=== PATIENT | female | born 1975 | race Hispanic/Latino ===

== ENCOUNTER 2018-01-19 19:21 | Emergency (ER) | payer SELFPAY ==
[2018-01-19] MEDS ORDERED: ACT CHARCOAL/SORB 50 GM/240ML ONE ×2 (20:07→20:57)
[2018-01-19 20:10] LABS: Absolute Lymphocytes (CBC) 1.7 K/uL (0.7-4.9); Absolute Monocytes 0.4 K/uL (0.1-1.3); Absolute Neutrophil 2.6 K/uL (1.8-8.0); Basophils % 0.7 % (0-1.3); Eosinophils % 4.5 % (0-4.4); Hematocrit 37.1 % (36.0-45.0); Lymphocytes % 33.9 % (15.3-44.8); MCH 30.2 pg (27.0-35.0); MCV 87.9 fL (80-100); MPV 8.5 fL (7.6-11.3); Monocytes % 8.2 % (3.3-12.3); RBC Red Blood Cell Count 4.22 M/uL (3.86-4.86)
[2018-01-19 20:15] LABS: Barbiturates NEGATIVE; Benzodiazepines NEGATIVE; Cocaine NEGATIVE; METHAMPHETAM NEGATIVE; Opiates NEGATIVE; Phencyclidine NEGATIVE; THC Cannibis NEGATIVE
[2018-01-19 20:19] LABS: Bicarbonate 27 mEq/L (21-31); Glucose Level 82 mg/dL (65-120); Potassium 3.7 mEq/L (3.6-5.0); Sodium Level 140 mEq/L (135-145)
[2018-01-19 20:21] LABS: Protime INR 0.92
[2018-01-19 20:25] LABS: ALT/SGPT 14 IU/L (10-60); AST/SGOT 20 IU/L (10-42); Albumin 4.2 g/dL (3.2-5.5); Alkaline Phosphatase 57 IU/L (42-121); BUN Blood Urea Nitrogen 13 mg/dL (6-20); Bilirubin Direct 0.1 mg/dL (0-0.2); Bilirubin Total 0.5 mg/dL (0.3-1.2)
[2018-01-19 20:27] LABS: Alcohol Serum/Plasma 59 mg/dl; Salicylates Level < 4.0 mg/dl (<30)
[2018-01-19] MEDS ORDERED: ONDANSETRON 4 MG/2 ML VIAL ONE ×2 (20:28→21:29)
--- NOTE | 2018-01-19 20:51 | RAD REPORT ---
EXAM DESCRIPTION: RAD - Chest Single View - 01/19/2018 8:32 pm CLINICAL HISTORY: Chest pain COMPARISON: None. TECHNIQUE: AP portable chest image was obtained 2014 hours . FINDINGS: No pulmonary edema or other acute lung parenchymal finding. No failure or volume overload. Heart and vasculature are normal. No measurable pleural effusion and no pneumothorax. No gross bony abnormality seen. No acute aortic findings suspected. IMPRESSION: No acute cardiopulmonary process.
[2018-01-19 21:07] LABS: Urine Blood NEGATIVE (NEG); Urine Glucose NEGATIVE (NEG); Urine Protein NEGATIVE (NEG); Urine Specific Gravity 1.025 (1.005-1.030)
--- NOTE | 2018-01-20 01:40 | ER ---
Nurse's Notes [facility] Name: Zora Schneider Age: 42 yrs Sex: Female : 1975 Arrival Date: 01/19/2018 Time: 19:28 Bed 3 Private MD: Diagnosis: Anticholinergic overdose;Acute upper respiratory infection, unspecified Presentation: 01/19 19:29 Presenting complaint: Patient states: approx 1 hr ago she took 12 Benadryl and 3 aa1 Tylenol PM. Pt reports quan was not trying to hurt herself. States, "I'm just tired of feeling bad and I don't wanna be sick anymore." Pt reports for the past week she has had a headache and sore throat. NAD noted. Transition of care: patient was not received from another setting of care. Onset of symptoms was January 19, 2018. Care prior to arrival: None. 19:29 Method Of Arrival: Wheelchair aa1 19:29 Acuity: MICHELE 3 aa1 Triage Assessment: 19:31 General: Appears in no apparent distress. comfortable, Behavior is calm, cooperative, aa1 appropriate for age. Pain: Denies pain. 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 - Social history:: Smoking status: Patient/guardian denies using tobacco. Screenin:22 Abuse screen: Denies threats or abuse. Denies injuries from another. Nutritional bs1 screening: No deficits noted. Tuberculosis screening: No symptoms or risk factors identified. Fall Risk None identified. Assessment: 19:35 General: Appears uncomfortable, Behavior is cooperative, anxious. General: Behavior is bs1 drowsy. Pain: Denies pain. Neuro: Level of Consciousness is awake, obeys commands, lethargic, Oriented to person, place, time, situation, Appropriate for age Manager Assurance are equal bilaterally Moves all extremities. Gait is steady, Speech is normal. Cardiovascular: Denies chest pain, palpitations, shortness of breath, syncope, Heart tones S1 S2 present Capillary refill < 3 seconds Patient's skin is warm and dry. Respiratory: Airway is patent Trachea midline Respiratory effort is even, unlabored, Respiratory pattern is regular, symmetrical, Breath sounds are clear bilaterally. Respiratory: Denies shortness of breath at rest, on exertion. GI: Abdomen is round Bowel sounds present X 4 quads. Reports nausea. : No deficits noted. No signs and/or symptoms were reported regarding the genitourinary system. EENT: No deficits noted. No signs and/or symptoms were reported regarding the EENT system. Derm: No deficits noted. No signs and/or symptoms reported regarding the dermatologic system. Musculoskeletal: Circulation, motion, and sensation intact. Capillary refill < 3 seconds, Range of motion: intact in all extremities. 19:42 Reassessment: Spoke with Wilfred with Poison control who states that if pt is awake fc enough to have her drink charcoal. Monitor her for DOORS PREFITTER depression, slurred speech and seizures which she can be given Ativan for. 19:45 General: Side rails padded. Seizure precautions implemented. . bs1 20:12 Reassessment: Patient gagging while drinking Charcoal, Provider notified, verbal order lp1 given to administer Zofran 4mg IV. 20:32 Reassessment: Patient threw up half of Charcoal 150ml. bs1 20:53 Reassessment: Adrienne from Poison Control called at this time for update on patient; No lp1 further recommendations; . 21:53 Reassessment: Patient appears in no apparent distress at this time. Patient and/or bs1 family updated on plan of care and expected duration. Pain level reassessed. Patient is alert, oriented x 3, equal unlabored respirations, skin warm/dry/pink. Patient states symptoms have improved. 22:53 Reassessment: No changes from previously documented assessment. Patient and/or family bs1 updated on plan of care and expected duration. Pain level reassessed. Patient is alert, oriented x 3, equal unlabored respirations, skin warm/dry/pink. 23:47 Reassessment: No changes from previously documented assessment. Patient and/or family bs1 updated on plan of care and expected duration. Pain level reassessed. Patient is alert, oriented x 3, equal unlabored respirations, skin warm/dry/pink. Per DIVISION FIELD INSPECTOR patient will be monitored until around 1am then will be discharged. Patient drowsy but able to arouse. No signs of DOORS PREFITTER depression, or seizure activity noted. Will continue to monitor. 01/20 00:38 Reassessment: Patient appears in no apparent distress at this time. Patient is alert, bs1 oriented x 3, equal unlabored respirations, skin warm/dry/pink. Pending discharge. 01:46 Reassessment: Patient is alert, oriented x 3, equal unlabored respirations, skin lp1 warm/dry/pink. Reassessment: Patient states feeling better. Neuro: Moves all extremities. Gait is steady. Vital Signs: 01/19 19:31 BP 130 / 94; Pulse 85; Resp 14; Pulse Ox 100% on R/A; Weight 83.91 kg; Height 5 ft. 5 aa1 in. (165.10 cm); Pain 0/10; 19:37 Temp 98.4(O); ao 21:08 BP 128 / 84; Pulse 90; Resp 20; Pulse Ox 98% on R/A; mt 22:30 BP 116 / 72; Pulse 75; Resp 16; Pulse Ox 99% on R/A; mt 23:51 BP 112 / 82; Pulse 70; Resp 16; Pulse Ox 96% on R/A; mt 01/20 00:39 BP 99 / 76; Pulse 71; Resp 16; Pulse Ox 98% on R/A; Pain 0/10; lp1 01:41 BP 110 / 56; Pulse 73; Resp 16; Pulse Ox 100% on R/A; lp1 01/19 19:31 Body Mass Index 30.79 (83.91 kg, 165.10 cm) aa1 ED Course: 01/19 19:28 Patient arrived in ED. aa1 19:30 Zain Forbes NP is PHCP. pm1 19:30 Sung Murphy MD is Attending Physician. pm1 19:31 Triage completed. aa1 19:31 Arm band placed on left wrist. Patient placed in an exam room, on a stretcher. aa1 19:40 Patient has correct armband on for positive identification. Bed in low position. Call bs1 light in reach. Side rails up X 1. hall monitor on. Pulse ox on. NIBP on. 19:40 Warm blanket given. bs1 19:59 Sulma Sagastume, KIMBERLY is Primary Nurse. bs1 20:08 Inserted saline lock: 20 gauge in left antecubital area, using aseptic technique. Blood mt collected. 20:08 Strep Sent. mt 20:08 Flu Sent. mt 20:29 X-ray completed. Portable x-ray completed in exam room. Patient tolerated procedure kp1 well. 01/20 00:37 No provider procedures requiring assistance completed. IV discontinued, bleeding bs1 controlled, No redness/swelling at site. Pressure dressing applied. Administered Medications: 01/19 20:00 Drug: Charcoal Suspension 100 grams Route: PO; lp1 01/20 00:36 Follow up: Response: No adverse reaction; Vomiting increased bs1 01/19 20:13 Drug: Zofran 4 mg Route: IVP; Site: left antecubital; lp1 20:28 Follow up: Response: Nausea is decreased bs1 21:14 Drug: Zofran 4 mg Route: IVP; Site: left antecubital; lp1 01/20 00:36 Follow up: Response: No adverse reaction bs1 Outcome: 00:38 Condition: stable bs1 01:39 Discharge ordered by MD. pm1 01:41 Discharge instructions given to patient, Instructed on discharge instructions, follow lp1 up and referral plans. Demonstrated understanding of instructions, follow-up care. 01:46 Discharged to home ambulatory, with family. lp1 01:47 Patient left the ED. lp1 Signatures: Vale Girard RN RN aa1 Laquita Smith RN Evelyn Lieberman RN RN lp1 Kody Elizabeth RN Zain De Jesus NP DIVISION FIELD INSPECTOR pm1 Cha Schroeder mt, Kathy kp1 Sulma Sagastume RN RN bs1
--- NOTE | 2018-01-20 01:40 | EDPHYS ---
Physician Documentation [facility] Name: Zora Schneider Age: 42 yrs Sex: Female : 1975 Arrival Date: 01/19/2018 Time: 19:28 Bed 3 Private MD: ED Physician Sung Murphy HPI: 01/20 01:13 This 42 yrs old Female presents to ER via Wheelchair with complaints of pm1 Overdose. 01:13 The patient presents to the emergency department after a known overdose. pm1 01:15 Patient with cough, sore throat, and congestion for 1 week and got tired of feeling pm1 ill. Patient took 12 Benadryl pills and 3 Tylenol PM in an attempt to feel better quickly. 01:15 Patient denies any suicidal ideation or thoughts of self harm. Patient feeling sleepy. pm1 Took medications one hour prior to arrival. 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 - Social history:: Smoking status: Patient/guardian denies using tobacco. ROS: 01/20 01:15 Constitutional: Negative for fever, chills, and weight loss, Eyes: Negative for injury, pm1 pain, redness, and discharge. Neck: Negative for injury, pain, and swelling, Cardiovascular: Negative for chest pain, palpitations, and edema. Abdomen/GI: Negative for abdominal pain, nausea, vomiting, diarrhea, and constipation, Back: Negative for injury and pain, : Negative for injury, bleeding, discharge, and swelling, MS/Extremity: Negative for injury and deformity, Skin: Negative for injury, rash, and discoloration, Neuro: Negative for headache, weakness, numbness, tingling, and seizure. ENT: Positive for sore throat. Respiratory: Positive for cough, Negative for shortness of breath, sputum production. Psych: Negative for anxiety, depression, auditory hallucinations, visual hallucinations, homicidal ideation, suicide gesture, suicidal ideation. Exam: 01:15 Constitutional: This is a well developed, well nourished patient who is awake, alert, pm1 and in no acute distress. Head/Face: Normocephalic, atraumatic. Eyes: Pupils equal round and reactive to light, extra-ocular motions intact. Lids and lashes normal. Conjunctiva and sclera are non-icteric and not injected. Cornea within normal limits. Periorbital areas with no swelling, redness, or edema. ENT: Nares patent. No nasal discharge, no septal abnormalities noted. Tympanic membranes are normal and external auditory canals are clear. Oropharynx with no redness, swelling, or masses, exudates, or evidence of obstruction, uvula midline. Mucous membranes moist. Neck: Trachea midline, no thyromegaly or masses palpated, and no cervical lymphadenopathy. Supple, full range of motion without nuchal rigidity, or vertebral point tenderness. No Meningismus. Chest/axilla: Normal chest wall appearance and motion. Nontender with no deformity. No lesions are appreciated. Cardiovascular: Regular rate and rhythm with a normal S1 and S2. No gallops, murmurs, or rubs. Normal PMI, no JVD. No pulse deficits. Respiratory: Lungs have equal breath sounds bilaterally, clear to auscultation and percussion. No rales, rhonchi or wheezes noted. No increased work of breathing, no retractions or nasal flaring. Abdomen/GI: Soft, non-tender, with normal bowel sounds. No distension or tympany. No guarding or rebound. No evidence of tenderness throughout. Back: No spinal tenderness. No costovertebral tenderness. Full range of motion. Skin: Warm, dry with normal turgor. Normal color with no rashes, no lesions, and no evidence of cellulitis. MS/ Extremity: Pulses equal, no cyanosis. Neurovascular intact. Full, normal range of motion. 01:15 Neuro: Orientation: is normal, Mentation: is normal, Cranial nerves: CN II- XII are normal as tested, Cerebellar function: normal finger to nose testing, Motor: moves all fours, Sensation: is normal, no obvious gross deficits. Vital Signs: 01/19 19:31 BP 130 / 94; Pulse 85; Resp 14; Pulse Ox 100% on R/A; Weight 83.91 kg; Height 5 ft. 5 aa1 in. (165.10 cm); Pain 0/10; 19:37 Temp 98.4(O); ao 21:08 BP 128 / 84; Pulse 90; Resp 20; Pulse Ox 98% on R/A; mt 22:30 BP 116 / 72; Pulse 75; Resp 16; Pulse Ox 99% on R/A; mt 23:51 BP 112 / 82; Pulse 70; Resp 16; Pulse Ox 96% on R/A; mt 01/20 00:39 BP 99 / 76; Pulse 71; Resp 16; Pulse Ox 98% on R/A; Pain 0/10; lp1 01:41 BP 110 / 56; Pulse 73; Resp 16; Pulse Ox 100% on R/A; lp1 01/19 19:31 Body Mass Index 30.79 (83.91 kg, 165.10 cm) aa1 MDM: 01/19 19:30 Patient medically screened. pm1 01/20 01:35 ED course: Patient observed for 6 hours and asymptomatic. Patient safe for discharge. pm1 01:37 Data reviewed: vital signs. Data interpreted: Pulse oximetry: on room air is 98 %. pm1 Interpretation: normal. Counseling: I had a detailed discussion with the patient and/or guardian regarding: the historical points, exam findings, and any diagnostic results supporting the discharge/admit diagnosis, lab results, radiology results, the need for outpatient follow up, to return to the emergency department if symptoms worsen or persist or if there are any questions or concerns that arise at home. 01/19 19:33 Order name: Acetaminophen pm01/19 19:33 Order name: Basic Metabolic Panel pm01/19 19:33 Order name: CBC with Diff pm01/19 19:33 Order name: ETOH Level pm01/19 19:33 Order name: Hepatic Function pm01/19 19:33 Order name: PT-INR pm01/19 19:33 Order name: Ptt, Activated pm01/19 19:33 Order name: Salicylate pm01/19 19:33 Order name: Urine Drug Screen pm01/19 19:36 Order name: Flu pm01/19 19:36 Order name: Strep pm01/19 19:55 Order name: Urine Dipstick--Ancillary (enter results) em1 01/19 20:14 Order name: CBC with Automated Diff; Complete Time: 20:49 EDNE 01/19 20:15 Order name: Urine Drug Screen; Complete Time: 20:49 EDMS 01/19 19:54 Order name: Chest Single View XRAY ao 01/19 20:20 Order name: Basic Metabolic Panel; Complete Time: 20:49 EDMS 01/19 20:27 Order name: Liver (Hepatic) Function; Complete Time: 20:49 EDMS 01/19 20:27 Order name: Acetaminophen Level; Complete Time: 20:49 EDMS 01/19 20:27 Order name: Alcohol Serum/Plasma; Complete Time: 20:49 EDMS 01/19 20:27 Order name: Salicylates Level; Complete Time: 20:49 EDMS 01/19 20:35 Order name: Influenza Screen (A ; Complete Time: 20:49 EDMS 01/19 20:35 Order name: Group A Streptococcus Rapid Sc; Complete Time: 20:49 EDMS 01/19 20:38 Order name: Protime (+INR); Complete Time: 20:49 EDMS 01/19 20:38 Order name: PTT, Activated Partial Thromb; Complete Time: 20:49 EDMS 01/19 20:51 Order name: RAD; Complete Time: 21:08 EDMS 01/19 21:07 Order name: Urine Dipstick-Ancillary; Complete Time: 21:08 EDMS 01/20 00:55 Order name: Throat Culture [facility] 01/19 19:33 Order name: Urine Test (obtain specimen); Complete Time: 19:52 pm1 01/19 19:33 Order name: EKG; Complete Time: 19:33 pm01/19 19:33 Order name: EKG - Nurse/Tech; Complete Time: 20:08 pm01/19 19:33 Order name: IV Saline Lock; Complete Time: 20:08 pm01/19 19:33 Order name: Labs collected and sent; Complete Time: 20:08 pm01/19 19:33 Order name: Urine Dipstick-Ancillary (obtain specimen); Complete Time: 20:14 pm01/19 19:34 Order name: Misc. Order: contact poison control; Complete Time: 19:38 pm1 Administered Medications: 01/19 20:00 Drug: Charcoal Suspension 100 grams Route: PO; lp1 01/20 00:36 Follow up: Response: No adverse reaction; Vomiting increased bs1 01/19 20:13 Drug: Zofran 4 mg Route: IVP; Site: left antecubital; lp1 20:28 Follow up: Response: Nausea is decreased bs1 21:14 Drug: Zofran 4 mg Route: IVP; Site: left antecubital; lp1 01/20 00:36 Follow up: Response: No adverse reaction bs1 Disposition: 03:50 Co-signature as Attending Physician, Sung Murphy MD. pkl Disposition: 01/20/18 01:39 Discharged to Home. Impression: Anticholinergic overdose, Acute upper respiratory infection, unspecified. - Condition is Stable. - Discharge Instructions: Overdose, Accidental, Upper Respiratory Infection, Adult, Viral Infections. - Medication Reconciliation Form, Thank You Letter form. - Follow up: Emergency Department; When: As needed; Reason: Worsening of condition. Follow up: Private Physician; When: 2 - 3 days; Reason: Recheck today's complaints, Continuance of care, Re-evaluation by your physician. - Problem is new. - Symptoms have improved. Signatures: Dispatcher [employer] Vale Jeronimo RN RN aa1 Sung Murphy MD MD pkl Evelyn Sue RN RN lp1 Zain Forbes, JAVASCRIPT WEB DEVELOPER JAVASCRIPT WEB DEVELOPER pm1 Sulma Sagastume RN bs1
--- NOTE | 2018-01-20 05:02 | EKG ---
Test Date: 2018-01-19 Test Time: 19:44:18 Pre Sales Systems Engineer: TANIKA MEASUREMENT RESULTS: Intervals: Rate: 66 IN: 154 QRSD: 96 QT: 398 QTc: 417 [place]: P: 67 IN: 154 QRS: 83 T: 52 INTERPRETIVE STATEMENTS: Normal sinus rhythm Normal ECG No previous ECG available for comparison Electronically Signed On 01-20-18 05:01:44 CDT by Macario Alvarez
== END 2018-01-20 01:47 | disposition home or self-care (01) ==
LOC: ER 19:21
DX: T44.3X1A Poisoning by other parasympatholytics [anticholinergics and antimuscarinics] and spasmolytics, accidental (unintentional), initial encounter (principal); J06.9 Acute upper respiratory infection, unspecified
CPT/HCPCS: 36415; 71045; 80048; 80076; 80307; 80320; 80329; 81003; 85025; 85610; 85730; 87070; 87081; 87804; 93005; 96374; 99284; J2405